=== PATIENT | female | born 1955 | race Asian ===

== ENCOUNTER → 2018-08-11 | Outpatient (CLI) | payer OTHER | END | disposition home or self-care (01) | LOC: CFH 09:50 | PROVIDERS: ATTEND Nurse Practitioner | DX: Z12.31 Encounter for screening mammogram for malignant neoplasm of breast (principal) | CPT/HCPCS: 77067 ==

== ENCOUNTER 2018-10-04 08:47 | Outpatient (CLI) | payer OTHER | END 2018-10-04 23:59 | disposition home or self-care (01) | LOC: CFH 08:47 | PROVIDERS: ATTEND Nurse Practitioner | DX: N63.22 Unspecified lump in the left breast, upper inner quadrant (principal) | CPT/HCPCS: 76641; 77065; G0279 ==